=== PATIENT | male | born 1955 | race Caucasian/White ===

== ENCOUNTER → 2024-03-18 16:35 | Outpatient (REF) | payer MEDICARE, BC, SELFPAY | LOC: RCS 16:35 | PROVIDERS: ATTENDING PHYSICIAN Family Medicine | DX: R01.1 Cardiac murmur, unspecified (principal) | CPT/HCPCS: 93306 ==

== ENCOUNTER → 2025-01-28 15:55 | Outpatient (REF) | payer MEDICARE, BC, SELFPAY | LOC: RCS 15:55 | PROVIDERS: ATTENDING PHYSICIAN Family Medicine | DX: R61 Generalized hyperhidrosis (principal); I35.0 Nonrheumatic aortic (valve) stenosis | CPT/HCPCS: 93306 ==

== ENCOUNTER → 2025-01-30 07:35 | Outpatient (REF) | payer MEDICARE, BC, SELFPAY | LOC: RCS 07:35 | PROVIDERS: ATTENDING PHYSICIAN Family Medicine | DX: R61 Generalized hyperhidrosis (principal); I35.0 Nonrheumatic aortic (valve) stenosis; R07.89 Other chest pain | CPT/HCPCS: 93017 ==

== ENCOUNTER → 2025-02-02 07:38 | Outpatient (REF) | payer MEDICARE, BC, SELFPAY | LOC: PAVMRI 07:38 | PROVIDERS: ATTENDING PHYSICIAN Family Medicine; FAMILY PHYSICIAN Family Medicine | DX: H53.9 Unspecified visual disturbance (principal); R53.83 Other fatigue; R61 Generalized hyperhidrosis; R41.3 Other amnesia | CPT/HCPCS: 70553; A9575 ==

== ENCOUNTER → 2025-02-27 14:09 | Outpatient (REF) | payer MEDICARE, BC, SELFPAY | LOC: RAD 14:09 | PROVIDERS: ATTENDING PHYSICIAN Otolaryngology; FAMILY PHYSICIAN Student in an Organized Health Care Education/Training Program | DX: J32.0 Chronic maxillary sinusitis (principal); R59.1 Generalized enlarged lymph nodes | CPT/HCPCS: 70486; 71046 ==